=== PATIENT | female | born 1950 | race Caucasian/White ===

== ENCOUNTER 2016-12-18 06:04 | Day surgery (SDC) | payer MEDICARE ==
[~2016-12-18] VITALS: Ht 157.5 cm; Wt 58.6 kg
[~2016-12-18 06:04] MED LIST: ALBU8.5H IH; ASPI81 PO; BUDE10.2 IH; FAMO20 PO; LEVO500 PO; LOSA50TA37 PO; MOME13HF IH; MONT10TA21 PO; SODIUM CHLORIDE 0.9% 1,000 ML IV ONE; TRAZ-147 PO
[2016-12-18] MEDS ORDERED: SODIUM CHLORIDE 0.9% 1,000 ML IV ONE (06:17)
[2016-12-18] MEDS ORDERED: DiphenhydrAMINE HCL 50 MG/ML VIAL ONE (07:14)
[2016-12-18] MEDS ORDERED: SODIUM TETRADECYL SULFATE 3% 60 MG/2 ML VIAL IVP ONE (07:14)
[2016-12-18] MEDS ORDERED: FLUMAZENIL 0.1 MG/ML 5 ML VIAL IVP ONE (07:14)
[2016-12-18] MEDS ORDERED: NALOXONE HCL 0.4 MG/ML VIAL ONE (07:14)
[2016-12-18] MEDS ORDERED: EPINEPHrine 1:10,000 [1 MG/10 ML] SYRINGE ONE (07:14)
[2016-12-18] MEDS ORDERED: ATROPINE SULFATE 0.1 MG/ML 10 ML SYRINGE IVP ONE (07:14)
[2016-12-18] MEDS ORDERED: MIDAZOLAM HCL 2 MG/2 ML VIAL ONE (07:15)
[2016-12-18] MEDS ORDERED: FentaNYL CITRATE-PF 100 MCG/2 ML VIAL ONE (07:15)
[2016-12-18] MEDS ORDERED: MethylPREDNISolone SOD SUCC 125 MG/2 ML VIAL IVP ONE ×2 (08:45)
[2016-12-18] MEDS ORDERED: MethylPREDNISolone SOD SUCC 125 MG/2 ML VIAL ONE (08:55)
[2016-12-18] MEDS ORDERED: LIDOCAINE HCL 4% 50 ML SOLUTION TP ONE (16:18)
[2016-12-18] MEDS ORDERED: BENZOCAINE 20% 50 MCG/SPRAY 57 GM TP ONE (16:18)
[2016-12-18] MEDS ORDERED: LIDOCAINE HCL 2% 30 ML JELLY TP ONE (16:18)
[2016-12-18] MEDS ORDERED: ALBUTEROL SULFATE 2.5 MG/0.5 ML NEB SOLUTION NEB ONE (16:18)
[2016-12-18] MEDS ORDERED: OXYGEN THERAPY IH SCH (20:00)
== END 2016-12-18 09:50 | disposition home or self-care (01) ==
LOC: SURGERY 06:04
PROVIDERS: ATTEND Internal Medicine Critical Care Medicine
DX: J38.4 Edema of larynx (principal); B37.0 Candidal stomatitis; J45.909 Unspecified asthma, uncomplicated; K21.9 Gastro-esophageal reflux disease without esophagitis; M54.9 Dorsalgia, unspecified; F17.200 Nicotine dependence, unspecified, uncomplicated; Z72.89 Other problems related to lifestyle; Z98.890 Other specified postprocedural states
CPT/HCPCS: 31623; 31624; 71010; 87015 ×2; 87070; 87101; 87147; 87205; 87220; 88108; 88305; 88312; J2250; J2930; J3010; J7030; J0171; J0461; J1200; J2310; J3490